=== PATIENT | female | born 1990 | race Caucasian/White ===

== ENCOUNTER → 2017-12-28 | Outpatient (CLI) | payer BC ==
--- NOTE | 2017-12-28 15:19 | RAD ---
Complete abdominal ultrasound 12/28/2017 4:00 PM Clinical History: abd pain, pt stated she feels full Technique: Ultrasound examination of the abdomen was performed, and multiple static images were submitted for review. Comparison: None Findings: The visualized portions of the pancreas are within normal limits. The visualized aorta and IVC are unremarkable. The gallbladder is normal in appearance without wall thickening, stones, or sludge. No pericholecystic fluid is seen. Sonographic Jean-Baptiste's sign is negative. The common bile duct measures 4 mm in diameter which is within normal limits. The liver measures top normal in size measuring 18 cm longitudinally. The liver is normal in echotexture. No intrahepatic biliary ductal dilatation is seen. No focal hepatic lesions are identified. Spleen is grossly normal in size and appearance. The bilateral kidneys are normal in appearance without evidence of obstructive uropathy, nephrolithiasis, or focal renal lesion. Right kidney measures 12 cm point in length. Left kidney measures 11.3 cm in length. Impression: No sonographic evidence of acute intra-abdominal abnormality Electronically signed by: Glenn Cao MD (12/28/2017 3:16 PM) [id number]
== END | disposition home or self-care (01) ==
LOC: US 12:18
PROVIDERS: ATTEND Nurse Practitioner Family
DX: R10.31 Right lower quadrant pain (principal); R10.11 Right upper quadrant pain
CPT/HCPCS: 76700